=== PATIENT | female | born 1980 ===

== ENCOUNTER → 2020-10-05 | Outpatient (CLI) | payer BC ==
--- NOTE | 2020-10-05 17:46 | Diagnostic Imaging Report ---
PROCEDURE: MRI lumbar spine. TECHNIQUE: Multiplanar, multisequence MRI of the lumbar spine was performed without contrast. INDICATION: Chronic low back pain. COMPARISON: Lumbar spine MRI from 02/16/2016. FINDINGS: Normal alignment of the lumbar spine. Chronic Schmorl's node involving the superior endplate of L2 which has small amount of surrounding Modic type II endplate changes. There is also a chronic Schmorl's node involving the superior endplate of T11. Mild chronic compression deformity at L1. No additional sites of Modic endplate changes. No stress fracture within the sacrum. Distal thoracic cord is normal in size and signal. Paravertebral musculature is normal in bulk. 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 L1-L2: No change in mild disc bulging. No spinal stenosis or foraminal narrowing. L2-L3: Normal. L3-L4: Normal. L4-L5: Minimal disc bulge is unchanged. There is no resultant spinal stenosis or neuroforaminal narrowing. L5-S1: Normal. IMPRESSION: 1. No new/acute fracture of the lumbar spine. 2. Chronic superior endplate mild compression deformity of L1 is unchanged. 3. Degenerative Schmorl's nodes involving the superior plate of L2 and T11 are unchanged. 4. No spinal stenosis or neural impingement. Dictated by: Dictated on workstation # [id number]
== END ==
LOC: RAD 13:15
PROVIDERS: ATTEND Physician Assistant
DX: M51.06 Intervertebral disc disorders with myelopathy, lumbar region (principal); M51.46 Schmorl's nodes, lumbar region; M51.44 Schmorl's nodes, thoracic region
CPT/HCPCS: 72148

== ENCOUNTER → 2021-09-28 | Outpatient (CLI) | payer BC ==
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
== END ==
LOC: RAD 14:45
DX: M54.50 Low back pain, unspecified (principal)
CPT/HCPCS: 72148

== ENCOUNTER 2021-11-14 09:30 | Outpatient (CLI) | payer BC ==
[~2021-11-14] VITALS: Ht 165.1 cm; Wt 76.3 kg
[2021-11-14] MEDS ORDERED: DARU1TAB3 PO (10:26)
[2021-11-14] MEDS ORDERED: CYCL10TA25 PO (10:26)
[2021-11-14] MEDS ORDERED: ALBU1.25 INH (10:26)
[2021-11-14] MEDS ORDERED: HYDR28OI2 TP (10:26)
[2021-11-14] MEDS ORDERED: MELO7.5T46 PO (10:26)
[2021-11-14] MEDS ORDERED: DRON10CA5 PO (10:26)
[2021-11-14] MEDS ORDERED: BUDE10.2 IH (10:26)
[2021-11-14] MEDS ORDERED: SULF-221 PO (10:26)
[2021-11-14] MEDS ORDERED: OMEP40CA6 PO (10:26)
[2021-11-14] MEDS ORDERED: ERGO1250 PO (10:26)
== END 2021-11-14 10:47 ==
LOC: PREOP 09:30
PROVIDERS: ATTEND Surgery
DX: Z01.818 Encounter for other preprocedural examination (principal)

== ENCOUNTER 2021-11-16 09:21 | Day surgery (SDC) | payer BC ==
[~2021-11-16] VITALS: Ht 165.1 cm; Wt 76.3 kg
[~2021-11-16 09:21] MED LIST: ALBU1.25 INH; BUDE10.2 IH; CYCL10TA25 PO; DARU1TAB3 PO; DRON10CA5 PO; ERGO1250 PO; HYDR28OI2 TP; MELO7.5T46 PO; OMEP40CA6 PO; SULF-221 PO
[2021-11-16] MEDS ORDERED: LIDOCAINE JELLY 2% 6 ML SYRINGE MM PRN (09:30)
[2021-11-16] MEDS ORDERED: LACTATED RINGERS 1,000 ML IV STA (09:30)
[2021-11-16 09:45] VITALS: BP 118/70
--- NOTE | 2021-11-16 10:07 | Progress Note-Pre Operative ---
Pre-Operative Progress Note Date of Available H&P: Nov 16, 2021 Date H&P Reviewed: Nov 16, 2021 Time H&P Reviewed: 10:00 History & Physical: No changes noted Pre-Operative Diagnosis: abd pain, rectal bleed LOIS ROSENBAUM MD Nov 16, 2021 10:07
--- NOTE | 2021-11-16 10:08 | Discharge Inst-Surgical ---
D/C Lap Instructions-ROBI Follow Up Activity as tolerated High Fiber Diet 25g or more per day Avoid Alcohol, Caffeine, Spicy Deal and Acid foods. Drink 64 fluid oz or more of fluids per day. Symptoms to Report: Fever over 101 degree F, Nausea/Vomiting If any problems/questions: Contact your physician or go to Emergency Room LOIS ROSENBAUM MD Nov 16, 2021 10:08
[2021-11-16] MEDS ORDERED: ONDANSETRON 4 MG (ZOFRAN) ORAL DISSOLVE TAB PO PRN (10:15)
[2021-11-16] MEDS ORDERED: ONDANSETRON 4 MG/2 ML (SDV) Z0FRAN IVP PRN (10:15)
[2021-11-16] MEDS ORDERED: MIDAZOLAM 2 MG/2 ML (VERSED) VIAL ONE (10:17)
[2021-11-16] MEDS ORDERED: PROPOFOL INJECTION 50 ML IV ONE ×2 (10:17→10:49)
[2021-11-16 11:18] VITALS: BP 122/76
[2021-11-16 11:23] VITALS: BP 126/79
[2021-11-16 11:25] VITALS: BP 126/79
--- NOTE | 2021-11-16 11:37 | Progress Note-Post Operative ---
Post-Operative Progess Note Surgeon (s)/Thresher Broomcorn (s) Surgeon LOIS ROSENBAUM MD Thresher Broomcorn: none Pre-Operative Diagnosis abd pain, rectal bleed Post-Operative Diagnosis colonoscopy with bx. Procedure & Operative Findings Date of Procedure 11/16/21 Procedure Performed/Findings colonoscopy with bx. Anesthesia Type mac Estimated Blood Loss Estimated blood loss (mL): minimal Specimens/Packing Specimens Removed cecum, desc, rectum LOIS ROSENBAUM MD Nov 16, 2021 11:37
[2021-11-16 11:50] VITALS: BP 126/79
--- NOTE | 2021-11-16 11:50 | Anesthesia-General Post-Op ---
MAC Patient Condition Mental Status/LOC: Same as Preop Cardiovascular: Satisfactory Nausea/Vomiting: Absent Respiratory: Satisfactory Pain: Controlled Complications: Absent Post Op Complications Complications None Follow Up Care/Instructions Patient Instructions None needed. Anesthesiology Discharge Order Discharge Order Patient is doing well, no complaints, stable vital signs, no apparent adverse anesthesia problems. No complications reported per nursing. DARLYN MURPHY CRNA Nov 16, 2021 11:50
--- NOTE | 2021-11-16 15:51 | OPERATIVE REPORT ---
DATE OF SERVICE: 11/16/2021 ATTENDING PRIMARY SEWAGE DISPOSAL ENGINEER: [facility]. PREOPERATIVE DIAGNOSES: Crampy abdominal pain, rectal bleeding. POSTOPERATIVE DIAGNOSES: Mild chronic stage II external and internal hemorrhoids, no mucosal inflammatory changes to indicate any inflammatory bowel disease. No visible hypertrophic peyers patches. PROCEDURE: Colonoscopy with biopsy. SURGEON: Lois Rosenbaum MD. ANESTHESIA: Monitored anesthesia care. ESTIMATED BLOOD LOSS: Minimal. FINDINGS: Mild chronic stage II external and internal hemorrhoids, no mucosal inflammatory changes to indicate any inflammatory bowel disease. No visible lymphadenopathy. DISPOSITION: The patient tolerated the procedure well. INDICATIONS: The patient is a 41-year-old female referred over to us for crampy abdominal pain as well as episodes of diarrhea and then noticing blood per rectum. She states that this has been occurring intermittently for several years; however, more recently, she had an episode that lasted for 4 days and was much worse in characteristics. She does not report any intermittent episodes of mucusy stools nor any dark tarry stools. She states that her stools are normally formed; however, she did have the episodes of diarrhea that lasted for 4 days as well as noticing blood per rectum. She has not had a colonoscopy up to this point in her life. She does not report any family history of colon cancer. She has a history of HIV; however, medically controlled. DESCRIPTION OF PROCEDURE: The patient was brought to the endoscopy suite, laid in the left lateral decubitus position. After adequate IV pain and sedative medications and monitored anesthesia care, a digital rectal examination was performed. Mild chronic stage II external and internal hemorrhoids were identified, which were not actively edematous nor inflamed and no bleeding. Normal sphincter tone was felt and there were no palpable masses. No fistulous tracts or any abscesses identifiable or palpable. The endoscope was then intubated into the anus and rectum gently insufflated. The endoscope was then advanced. Sigmoid colon, no diverticulosis identified. The endoscope was then advanced to the descending, transverse and ascending colon to the cecum, all of these segments were normal. There were no mucosal inflammatory changes to indicate any inflammatory bowel disease. There were no signs of colitis as well as no hypertrophic peyers patches to indicate any lymphadenopathy. Random biopsies were taken of the cecum, descending colon and the rectum with forceps with visualization of good hemostasis. The patient tolerated the procedure well. We will await the biopsy results; however, the episode may have been related to something more related to her diet or bacterial overgrowth of the colon. She also may have some component of irritable bowel syndrome. We will proceed with medical management for now and recommend a high fiber diet with at least 25 grams of fiber daily as well as significant amounts of water to promote soft consistency stools on a daily basis and to have a bowel movement at least daily. This tends also help promote soft stools when constipated as well as well-formed and more consistency during episodes of diarrhea. Dr. Moise - requested, unable to deliver. Job ID: [id number] DocumentID: [id number] Dictated Date: 11/16/2021 11:22:14 Senior System Operator Date: 11/16/2021 15:50:08 Dictated By: LOIS ROSENBAUM MD MTDD
== END 2021-11-16 12:10 | disposition home or self-care (01) ==
LOC: ENDO 09:21
PROVIDERS: ATTEND Surgery
DX: K64.1 Second degree hemorrhoids (principal); K52.9 Noninfective gastroenteritis and colitis, unspecified; K63.89 Other specified diseases of intestine; F17.210 Nicotine dependence, cigarettes, uncomplicated
CPT/HCPCS: 88305

== ENCOUNTER → 2022-01-08 | Outpatient (CLI) | payer BC ==
--- NOTE | 2022-01-08 12:06 | Diagnostic Imaging Report ---
PROCEDURE: US Gallbladder. TECHNIQUE: Multiple real-time grayscale images were obtained over the right upper quadrant in various projections. INDICATION: Right upper quadrant pain, nausea and vomiting. Ultrasound gallbladder 01/08/2022. FINDINGS: Examination somewhat limited due to overlying bowel gas obscuring portions of the abdomen. Visualized liver unremarkable with no focal lesions or intrahepatic biliary dilatation appreciated. Common duct is normal in size. Gallbladder wall is not thickened. There is no pericholecystic fluid. No stones appreciated. The pancreas is for the most part obscured by overlying bowel gas. Visualized aorta and IVC normal. Right kidney unremarkable with no hydronephrosis. There is no ascites. IMPRESSION: 1. Visualized right upper quadrant structures unremarkable with areas obscured by overlying bowel gas as noted above. Dictated by: Dictated on workstation # [id number]
== END ==
LOC: RAD 07:49
PROVIDERS: ATTEND Surgery
DX: R10.11 Right upper quadrant pain (principal); R11.2 Nausea with vomiting, unspecified
CPT/HCPCS: 76705

== ENCOUNTER → 2022-01-11 | Outpatient (CLI) | payer BC ==
[~2022-01-11] MED LIST changes: +CATHETER FLUSH 10 ML SYR IVP PRN
--- NOTE | 2022-01-11 14:01 | Diagnostic Imaging Report ---
INDICATION: Right upper quadrant pain. FINDINGS: The patient was administered 5.29 mCi of Tc 99m Choletec and sequential imaging was performed over the right upper abdomen. There is progressive, homogeneous accumulation of radiotracer within the liver parenchyma. There is filling of the bile ducts and subsequent filling of the gallbladder. There is progressive clearance of activity from the liver parenchyma and accumulation of radiotracer within loops of small bowel. The patient was then administered a fatty meal, utilizing 8 ounces of Ensure. The gallbladder ejection fraction was calculated to be approximately 4%. (Normal values post fatty meal stimulation are 33% or greater.) IMPRESSION: 1. Hepatobiliary scan demonstrates a patent biliary tree. 2. Abnormal gallbladder ejection fraction of only approximately 4%. Dictated by: Dictated on workstation # [id number]
== END ==
LOC: CARD 11:17
PROVIDERS: ATTEND Surgery
DX: R10.11 Right upper quadrant pain (principal); R11.2 Nausea with vomiting, unspecified
CPT/HCPCS: 78227; A9537

== ENCOUNTER → 2022-01-24 | Outpatient (CLI) | payer BC ==
[~2022-01-24] VITALS: Ht 165.1 cm; Wt 72.0 kg
[~2022-01-24] MED LIST changes: -CATHETER FLUSH 10 ML SYR IVP PRN
== END | disposition home or self-care (01) ==
LOC: PREOP 05:31
PROVIDERS: ATTEND Surgery
DX: Z01.818 Encounter for other preprocedural examination (principal)

== ENCOUNTER 2022-01-31 09:43 | Day surgery (SDC) | payer BC ==
[2022-01-31] VITALS (10 sets, daily range): BP systolic 127–162; BP diastolic 77–97
[~2022-01-31] VITALS: Ht 165.1 cm; Wt 72.0 kg
--- NOTE | 2022-01-31 09:58 | Progress Note-Pre Operative ---
Pre-Operative Progress Note Date H&P Reviewed: Jan 31, 2022 Time H&P Reviewed: 09:50 History & Physical: H&P Reviewed, Patient Examed, No changes noted Pre-Operative Diagnosis: Symptomatic Biliary Dyskinesia SOLOMON MELARA APRN Jan 31, 2022 09:58
[2022-01-31] MEDS ORDERED: HYDROcodone/APAP 5 MG/325 MG (LORTAB) TAB PO ONE (10:00)
[2022-01-31] MEDS ORDERED: ONDANSETRON 4 MG/2 ML (SDV) Z0FRAN IVP PRN ×2 (10:00→13:45)
[2022-01-31] MEDS ORDERED: morphine INJ 10 MG/ML 1ML (SYR OR VIAL) IVP PRN (10:00)
[2022-01-31] MEDS ORDERED: ceFAZolin INJECTION 2,000 MG in NS (IVPB) 50 ML IV ONE (10:00)
[2022-01-31] MEDS ORDERED: ACETAMINOPHEN 325 MG TABLET PO PRN (10:00)
[2022-01-31] MEDS ORDERED: HYDR-3817 PO (10:01)
--- NOTE | 2022-01-31 10:02 | Discharge Inst-Surgical ---
D/C Lap Instructions-KIDO Reconcile Patient Problems Problems Reviewed?: Yes New, Converted, or Re-Newed RX: RX on Chart Follow Up Appt in 2 weeks Activity as tolerated No driving for 24 hours No driving while on pain medications Incentive Spirometry use every 2 hours while awake Regular Diet Symptoms to Report: Fever over 101 degree F, Nausea/Vomiting Infection Signs and Symptoms to report: Increased redness, Foul odor of wound, Increased drainage Bathing instructions: May shower Operative Area Clean/Dry; Keep incision clean/dry If any problems/questions: Contact your physician or go to Emergency Room SOLOMON MELARA APRN Jan 31, 2022 10:02
[2022-01-31] MEDS: LACTATED RINGERS 1,000 ML IV PRN ×2 (10:27→13:49)
[2022-01-31 10:33] LABS: ALBUMIN 3.8 GM/DL (3.2-4.5); BILIRUBIN,TOTAL 0.4 MG/DL (0.1-1.0); CALCIUM 8.8 MG/DL (8.5-10.1); CREATININE SERUM 0.69 MG/DL (0.60-1.30); POTASSIUM 3.7 MMOL/L (3.6-5.0); TOTAL PROTEIN 7.8 GM/DL (6.4-8.2)
[2022-01-31] MEDS ORDERED: fentaNYL INJ 100 MCG/2 ML AMP ONE (10:44)
[2022-01-31] MEDS ORDERED: LIDOCAINE PF 2% 5 ML (XYLOCAINE) VIAL ONE (10:44)
[2022-01-31] MEDS ORDERED: ROCURONIUM 10 MG/ML 5 ML SYRINGE IV ONE (10:44)
[2022-01-31] MEDS ORDERED: NEOSTIGMINE 3 MG/3 ML VIAL ONE (10:44)
[2022-01-31] MEDS ORDERED: GLYCOPYRROLATE 0.2 MG/ML (ROBINUL) 2 ML VIAL ONE (10:44)
[2022-01-31] MEDS ORDERED: ONDANSETRON 4 MG/2 ML (SDV) Z0FRAN ONE (10:44)
[2022-01-31] MEDS ORDERED: proPOfol 200 MG/20 ML (DIPRIVAN) VIAL IV ONE (10:44)
[2022-01-31] MEDS ORDERED: MIDAZOLAM 2 MG/2 ML (VERSED) VIAL ONE (10:44)
[2022-01-31] MEDS ORDERED: BUP/EPI 0.5% 1:200,000 (MARCAINE) 10ML VIAL IJ ONE ×2 (11:24→12:56)
[2022-01-31] MEDS ORDERED: SEVOFLURANE (ULTANE) 15 ML INHAL SOLN ONE (13:19)
--- NOTE | 2022-01-31 13:42 | Anesthesia-General Post-Op ---
General Patient Condition Mental Status/LOC: Same as Preop Cardiovascular: Satisfactory Nausea/Vomiting: Absent Respiratory: Satisfactory Pain: Controlled Complications: Absent Post Op Complications Complications None Follow Up Care/Instructions Patient Instructions None needed. Anesthesia/Patient Condition Patient Condition Patient is doing well, no complaints, stable vital signs, no apparent adverse anesthesia problems. No complications reported per nursing. DARLYN MURPHY CRNA Jan 31, 2022 13:42
[2022-01-31] MEDS ORDERED: MEPERIDINE (DEMEROL) INJ 50 MG/ML IVP ONE (13:45)
[2022-01-31] MEDS ORDERED: fentaNYL INJ 100 MCG/2 ML AMP IVP ONE (13:45)
[2022-01-31] MEDS ORDERED: morphine INJ 10 MG/ML 1ML (SYR OR VIAL) IVP ONE (13:45)
--- NOTE | 2022-01-31 14:11 | OPERATIVE REPORT ---
DATE OF SERVICE: 01/31/2022 PREOPERATIVE DIAGNOSIS: Symptomatic biliary dyskinesia. POSTOPERATIVE DIAGNOSIS: Symptomatic biliary dyskinesia. PROCEDURE: Laparoscopic cholecystectomy. SURGEON: Dr. Rosenbaum. MOBILE MECHANIC: Aime Evans APRN. ANESTHESIA: General endotracheal. ESTIMATED BLOOD LOSS: Minimal. FINDINGS: Omental adhesions towards the gallbladder, no gallstones. DISPOSITION: The patient tolerated the procedure well. The patient is a 41-year-old female who was referred over to us for crampy abdominal pain with associated diarrhea, abdominal bloating as well as nausea. She initially presented with diarrhea and we proceeded with a colonoscopy on 11/16/2021 when she was found to have chronic stage II external and internal hemorrhoids; however, there were no inflammatory changes to indicate any form of active colitis. The patient had also reported that this was specific food related; however, could not pinpoint which ones were related to this. She underwent an ultrasound, which did not show any gallstones; however, she then underwent a HIDA scan, which showed a low ejection fraction and reproduction of symptoms consistent with symptomatic biliary dyskinesia. The patient was brought to the operating room, laid supine on the table. After adequate IV pain and sedative medications and general endotracheal intubation, the abdomen was prepped and draped in standard surgical fashion. A 0.5% Marcaine with epinephrine was used to anesthetize the overlying skin in left upper abdominal quadrant and transverse skin incision made using a 15 blade. An 0 silk suture was applied to the medial aspect of the incision for retraction and a Veress needle inserted with a low opening pressure of 0 mmHg and the abdomen was then insufflated to 15 mmHg pressure. The Veress needle removed, and a 5 mm XL trocar placed followed by a 5 mm 45-degree angle laparoscope visualizing the peritoneal cavity. A 4-quadrant abdominal exploration was performed. 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 There were also omental adhesions towards the gallbladder as well as mild gallbladder distention, no gallbladder wall thickening. Under direct visualization, we then proceeded to place a supraumbilical 10 mm port after the skin and peritoneal lining were anesthetized using 0.5% Marcaine with epinephrine and a transverse skin incision made using a 15 blade. In a similar manner, a right upper abdominal quadrant 5 mm port was placed. The patient was then placed in reverse Trendelenburg position as well as plane right side up, left side down. The fundus of the gallbladder was then retracted anteriorly and superiorly. The adhesions were then taken down using blunt dissection as well as electrocautery on hook instrument. The hepatoduodenal ligament was then dissected using the hook instrument as well as a [place] dissector identifying the entire critical view of safety including the triangle of Calot as well as the cystic duct and artery as the only two structures going into the gallbladder as well as the cystic plate behind the proximal gallbladder. A timeout was then taken, and the cystic duct and artery were then clipped proximally and distally and cut with EndoShears. The gallbladder was then dissected off the liver bed using cautery on hook instrument with visualization of good hemostasis as well as no leaking ducts of Luschka. The gallbladder was removed through the 10 mm port site using an EndoCatch bag. The 10 mm port site fascia and peritoneum were then closed under direct visualization using a Timur-Larisa device and 0 Vicryl suture. The abdomen was desufflated. The remaining ports removed. All skin incisions were closed using 4-0 Monocryl running subcuticular sutures. Wounds were then cleaned and covered with Dermabond. The patient tolerated the procedure well. We will start IV normal pain medication as a clear liquid diet. When she is tolerating clears, has good pain control with oral pain medications, ambulating well, we will discharge her home where she will be instructed to do no heavy lifting or exertion for the next two weeks. Job ID: [id number] DocumentID: [id number] Dictated Date: 01/31/2022 13:23:42 Tool Polishing Machine Operator Date: 01/31/2022 14:10:36 Dictated By: LOIS ROSENBAUM MD
[2022-01-31] MEDS ORDERED: HYDROcodone/APAP 5 MG/325 MG (LORTAB) TAB ONE (14:50)
--- NOTE | 2022-01-31 15:15 | Progress Note-Post Operative ---
Post-Operative Progess Note Surgeon (s)/Appeals Officer (s) Surgeon LOIS ROSENBAUM MD Appeals Officer: mateo barros [employer] SUPERVISOR Pre-Operative Diagnosis Symptomatic Biliary Dyskinesia Post-Operative Diagnosis same Procedure & Operative Findings Date of Procedure 01/31/22 Procedure Performed/Findings laparoscopic cholecystectomy Anesthesia Type get Estimated Blood Loss Estimated blood loss (mL): minimal Specimens/Packing Specimens Removed gallbladder LOIS ROSENBAUM MD Jan 31, 2022 15:15
== END 2022-01-31 15:50 | disposition home or self-care (01) ==
LOC: SDC 09:43
PROVIDERS: ATTEND Surgery
DX: K81.1 Chronic cholecystitis (principal); K82.8 Other specified diseases of gallbladder; F17.210 Nicotine dependence, cigarettes, uncomplicated; R75 Inconclusive laboratory evidence of human immunodeficiency virus [HIV]; R19.7 Diarrhea, unspecified
CPT/HCPCS: 36415; 80053; 86359; 86360; 87081; 87536; 88304